=== PATIENT | male | born 1995 | race Two or more races ===

== ENCOUNTER 2020-11-06 00:10 | Emergency (ER) | payer SELFPAY ==
[~2020-11-06] VITALS: Ht 188 cm; Wt 99.8 kg
--- NOTE | 2020-11-06 00:10 | NUR ---
[facility] FOR MEDICAL CLEARANCE. PT UNCOOPERATIVE AND REFUSED ALL MEDICAL CARE AT THIS TIME. JAMIL CARRANZA MADE AWARE.
--- NOTE | 2020-11-06 00:12 | NUR ---
PATIENT BIB [place] [employer]. PATIENT EXAMINED BY DR. CARRANZA. PATIENT MEDICALLY CLEARED AND RELEASED IN CUSTODY IN STABLE CONDITION. ORIGINAL PRE-BOOK FORM GIVEN TO OFFICER [place], #[id number].
== END 2020-11-06 00:12 ==
LOC: MED 00:10
DX: Z02.89 Encounter for other administrative examinations (principal)
CPT/HCPCS: 99283